=== PATIENT | female | born 1955 | race Caucasian/White ===

== ENCOUNTER 2016-07-14 04:53 | Emergency (ER) | payer MEDICARE, MEDICAID ==
[~2016-07-14] VITALS: Ht 172.7 cm; Wt 90.7 kg
[~2016-07-14 04:53] MED LIST: CARI350T21 PO; GABA300C8 PO; LIDO5DIS40 TOP; MORP30TA PO; OMEP20TA85 PO; OXCARBAZEPINE 600 MG TABLET PO; OXYBUTYNIN 5 MG PO; RANI-226 PO; ROPI0.5T18 PO; WARF10TA PO; WARF2TAB55 PO; ZOLP12.564 PO
[2016-07-14 05:00] VITALS: BP 128/78
== END 2016-07-14 06:57 | disposition home or self-care (01) ==
LOC: ER 04:58
DX: H10.33 Unspecified acute conjunctivitis, bilateral (principal); J45.909 Unspecified asthma, uncomplicated; Z86.73 Personal history of transient ischemic attack (TIA), and cerebral infarction without residual deficits; Z85.9 Personal history of malignant neoplasm, unspecified; Z86.711 Personal history of pulmonary embolism; Z88.6 Allergy status to analgesic agent; Z88.8 Allergy status to other drugs, medicaments and biological substances; Z79.899 Other long term (current) drug therapy

== ENCOUNTER 2017-07-17 04:17 | Inpatient (IN) | payer MEDICARE, MEDICAID ==
[~2017-07-17] VITALS: Ht 175.3 cm; Wt 108.9 kg
[~2017-07-17 04:17] MED LIST changes: +CARI-316 PO; -CARI350T21 PO; +GABA300C10 PO; -GABA300C8 PO; -LIDO5DIS40 TOP; +LIDO5DIS7 TOP
[2017-07-17 07:01] LABS: Basophils # (auto) 0 uL; Basophils % (auto) 0.4 % (0.0-2.0); Eosinophils # (auto) 0 uL; Eosinophils % (auto) 0.4 % (0.0-7.0); Hematocrit 32.8 % (36.0-46.0); Hemoglobin 11.3 g/dL (12.2-16.2); Lymphocytes # (auto) 0.4 uL; Lymphocytes % (auto) 10.4 % (10.0-50.0); Mean Corpuscular Hemoglobin 34.5 pg (28.0-32.0); Mean Corpuscular Hgb Conc. 34.5 g/dL (32.0-36.0); Monocytes # (auto) 0.2 uL; Monocytes % (auto) 6.8 % (0.0-12.0); Neutrophils # (auto) 2.8 uL; Platelet Count (auto) 162 10^3/uL (140-450); Red Blood Cells 3.28 10^6/uL (4.0-5.20); Red Cell Distribution Width 13.1 % (11.8-14.3); White Blood Cell 3.4 10^3/uL (4.4-10.8)
[2017-07-17 07:15] LABS: INR 0.99 (0.9-1.15); Partial Thromboplastin Time 26.2 sec (22.64-33.71); Prothrombin Time 10.8 sec (9.37-12.3)
[2017-07-17 07:37] LABS: Alanine Aminotransferase 42 U/L (13-56); Albumin 3.6 g/dL (3.4-5.0); Amylase 39 U/L (25-115); Anion Gap 6 (5-15); Aspartate Aminotransferase 32 U/L (15-37); BUN/Creatinine Ratio 38.7; Blood Urea Nitrogen 29 mg/dL (7-18); Calcium 8.3 mg/dL (8.5-10.1); Carbon Dioxide 29 mmol/L (21-32); Chloride 98 mmol/L (98-107); GFR African American 100 mL/min; GFR Non-African American 83 mL/min; Glucose 115 mg/dL (74-106); Lipase 85 U/L (73-393); Magnesium 2.1 mg/dL (1.6-2.6); Sodium 133 mmol/L (136-145)
[2017-07-17 07:39] LABS: Urine Bacteria NONE SEEN /hpf (None Seen); Urine Blood Negative /uL (Negative); Urine Mucus FEW (None Seen); Urine Specific Gravity 1.029 (1.001-1.035); Urine WBC <1 /hpf (0 - 5)
[2017-07-17 07:42] LABS: Alkaline Phosphatase 78 U/L (45-117); Bilirubin, Total 0.3 mg/dL (0.2-1.0); Total Protein 7.4 g/dL (6.4-8.2)
[2017-07-17] MEDS ORDERED: DEXTROSE 10% 1,000 ML IV ONE (07:45)
[2017-07-17] MEDS ORDERED: MEPERIDINE HCL (50 MG/ML) 1 ML VIAL IV ONE (10:45)
[2017-07-17] MEDS ORDERED: ONDANSETRON HCL 4 MG/2 ML VIAL IV ONE (10:45)
[2017-07-17] MEDS: SODIUM CHLORIDE 0.9% 1,000 ML IV SCH (11:47)
[2017-07-17] MEDS ORDERED: NITROGLYCERIN 0.4 MG SL TAB SL PRN (12:00)
[2017-07-17] MEDS ORDERED: MECLIZINE HCL 25 MG TAB PO PRN (12:00)
[2017-07-17] MEDS ORDERED: TEMAZEPAM 15 MG CAP PO PRN (12:00)
[2017-07-17] MEDS ORDERED: DEXTROSE (50%) 50ML SYRG IV PRN (12:00)
[2017-07-17] MEDS ORDERED: ACETAMINOPHEN 500 MG TAB PO PRN (12:00)
[2017-07-17] MEDS ORDERED: MECLIZINE HCL 25 MG TAB PO ONE (12:00)
[2017-07-17] MEDS ORDERED: LORazepam 0.5 MG TAB PO PRN (12:00)
[2017-07-17] MEDS ORDERED: MORPHINE SULFATE 4 MG/ML SYR/VIAL IV PRN (12:00)
[2017-07-17] MEDS ORDERED: HYDROcodone-ACET 5/325MG TAB PO PRN (12:00)
[2017-07-17 12:32] LABS: Alcohol, Urine < 3.0 mg/dL (0-5); Amphetamine Screen, Urine NEGATIVE (NEGATIVE); Barbiturate Scree,Urine NEGATIVE (NEGATIVE); Benzodiazephine Screen, Urine NEGATIVE (NEGATIVE); Cannabinoid Screen, Urine NEGATIVE (NEGATIVE); Cocaine Screen, Urine NEGATIVE (NEGATIVE); Opiate Scree,Urine POSITIVE (NEGATIVE); Phencyclidine Screen, Urine NEGATIVE (NEGATIVE)
[2017-07-17] MEDS: ASPirin 81 mg TAB PO SCH (12:51)
[2017-07-17] MEDS: PANTOPRAZOLE 40 MG TAB PO SCH (12:51)
[2017-07-17] MEDS: InsuLIN REG 1unit/0.01ml Soln (100units/ml) SC SCH ×2 (12:55→18:00)
[2017-07-17] MEDS: ACCU-CHEK COMFORT CURVE STRIP VI SCH ×2 (12:56→18:00)
[2017-07-17] MEDS ORDERED: MORPHINE 30 MG PO SCH (14:00)
[2017-07-17] MEDS ORDERED: LORazepam 2MG/ML-1ML VIAL IV PRN (14:00)
[2017-07-17] MEDS: CARISOPRODOL 350 MG TAB PO SCH ×2 (14:02→22:38)
[2017-07-17] MEDS: OXYBUTYNIN CHL 5 MG TAB PO SCH ×2 (14:02→22:37)
[2017-07-17 14:36] LABS: Cholesterol 138 mg/dL (< 200); HDL Cholesterol 50 mg/dL (40-59); LDL Cholesterol 79 mg/dL (< 100); Triglycerides 77 mg/dL (< 150)
[2017-07-17] MEDS: MORPHINE SULFATE 4 MG/ML SYR/VIAL IV PRN ×2 (16:17→22:39)
[2017-07-17] MEDS: ONDANSETRON HCL 4 MG/2 ML VIAL IV PRN ×2 (16:18→22:39)
[2017-07-17 16:57] VITALS: BP 126/67
[2017-07-17] MEDS ORDERED: WARFARIN SODIUM 10 MG TAB PO ONE (17:00)
[2017-07-17] MEDS ORDERED: ZOLPIDEM PO SCH (22:00)
[2017-07-17] MEDS ORDERED: OXcarbazepine 300 MG TAB PO SCH (22:00)
[2017-07-17] MEDS ORDERED: ROPINIROLE PO SCH (22:00)
[2017-07-17] MEDS: GABAPENTIN 300 MG CAP PO SCH (22:00)
[2017-07-17] MEDS: OXcarbazepine 300 MG TAB PO SCH (22:36)
[2017-07-17] MEDS: ATORVASTATIN 20 MG TAB PO SCH (22:37)
[2017-07-18] MEDS: ACCU-CHEK COMFORT CURVE STRIP VI SCH ×4 (00:30→18:00)
[2017-07-18] MEDS: SODIUM CHLORIDE 0.9% 1,000 ML IV SCH ×2 (00:31→07:47)
[2017-07-18] MEDS: ONDANSETRON HCL 4 MG/2 ML VIAL IV PRN ×4 (04:50→21:32)
[2017-07-18] MEDS: MORPHINE SULFATE 4 MG/ML SYR/VIAL IV PRN ×4 (04:55→21:33)
[2017-07-18] MEDS: CARISOPRODOL 350 MG TAB PO SCH ×3 (05:01→22:15)
[2017-07-18] MEDS: OXYBUTYNIN CHL 5 MG TAB PO SCH ×3 (05:01→22:14)
[2017-07-18] MEDS: InsuLIN REG 1unit/0.01ml Soln (100units/ml) SC SCH ×4 (05:08→18:00)
[2017-07-18 06:03] VITALS: BP 119/59
[2017-07-18 06:39] LABS: Basophils # (auto) 0 uL; Eosinophils # (auto) 0 uL; Mean Corpuscular Hgb Conc. 34.6 g/dL (32.0-36.0); Monocytes # (auto) 0.2 uL; Neutrophils # (auto) 1.2 uL; Red Cell Distribution Width 13.2 % (11.8-14.3); White Blood Cell 2.1 10^3/uL (4.4-10.8)
[2017-07-18 06:41] LABS: Basophils % (auto) 0.3 % (0.0-2.0); Hematocrit 29.1 % (36.0-46.0); Hemoglobin 10.1 g/dL (12.2-16.2); Lymphocytes # (auto) 0.7 uL; Mean Corpuscular Hemoglobin 34.6 pg (28.0-32.0); Monocytes % (auto) 11.8 % (0.0-12.0); Neutrophils % (auto) 54.9 % (37.0-80.0); Nucleated Red Blood Cells % 0.1 %; Red Blood Cells 2.91 10^6/uL (4.0-5.20)
[2017-07-18 06:45] LABS: Platelet Count (auto) 125 10^3/uL (140-450)
[2017-07-18 06:50] LABS: INR 0.99 (0.9-1.15); Partial Thromboplastin Time 26.6 sec (22.64-33.71); Prothrombin Time 10.8 sec (9.37-12.3)
[2017-07-18 07:07] LABS: Potassium 3.9 mmol/L (3.5-5.1)
[2017-07-18 07:14] LABS: BUN/Creatinine Ratio 26.3; Bilirubin, Total 0.3 mg/dL (0.2-1.0); Calcium 7.9 mg/dL (8.5-10.1); Total Protein 6.1 g/dL (6.4-8.2)
[2017-07-18 08:31] VITALS: BP 107/63
[2017-07-18 09:52] LABS: Folate (Folic Acid) 8.38 ng/mL (5.38-24)
[2017-07-18] MEDS: GABAPENTIN 300 MG CAP PO SCH ×2 (10:00→22:00)
[2017-07-18] MEDS: ASPirin 81 mg TAB PO SCH (11:05)
[2017-07-18] MEDS: DEXTROSE 10% 1,000 ML IV SCH ×2 (11:05→23:57)
[2017-07-18] MEDS: PANTOPRAZOLE 40 MG TAB PO SCH ×2 (11:05→22:15)
[2017-07-18 12:44] VITALS: BP 108/60
[2017-07-18 16:57] VITALS: BP 122/73
[2017-07-18] MEDS ORDERED: WARFARIN SODIUM 10 MG TAB PO ONE (17:00)
[2017-07-18] MEDS: ATORVASTATIN 20 MG TAB PO SCH (22:15)
[2017-07-18] MEDS: OXcarbazepine 300 MG TAB PO SCH (22:16)
[2017-07-19] MEDS: ACCU-CHEK COMFORT CURVE STRIP VI SCH ×4 (00:02→17:16)
[2017-07-19 00:38] VITALS: BP 113/59
[2017-07-19] MEDS: MORPHINE SULFATE 4 MG/ML SYR/VIAL IV PRN ×5 (04:17→21:04)
[2017-07-19] MEDS: ONDANSETRON HCL 4 MG/2 ML VIAL IV PRN ×4 (04:17→21:04)
[2017-07-19 05:42] VITALS: BP 129/56
[2017-07-19] MEDS: InsuLIN REG 1unit/0.01ml Soln (100units/ml) SC SCH ×4 (05:57→17:15)
[2017-07-19] MEDS: CARISOPRODOL 350 MG TAB PO SCH ×3 (05:58→22:16)
[2017-07-19] MEDS: OXYBUTYNIN CHL 5 MG TAB PO SCH ×3 (05:58→22:15)
[2017-07-19 06:53] LABS: INR 1.29 (0.9-1.15); Partial Thromboplastin Time 28.7 sec (22.64-33.71); Prothrombin Time 14.1 sec (9.37-12.3)
[2017-07-19 09:00] VITALS: BP 132/56
[2017-07-19] MEDS: GABAPENTIN 300 MG CAP PO SCH ×2 (10:00→22:15)
[2017-07-19] MEDS: ASPirin 81 mg TAB PO SCH (10:00)
[2017-07-19] MEDS: PANTOPRAZOLE 40 MG TAB PO SCH ×2 (10:00→22:16)
[2017-07-19] MEDS ORDERED: LACTULOSE 20Gm/30ML SOLN PO PRN (11:00)
[2017-07-19] MEDS ORDERED: LIDOCAINE 5% TOPICAL PATCH TOP SCH (11:00)
[2017-07-19] MEDS: DEXTROSE 10% 1,000 ML IV SCH (12:21)
[2017-07-19] MEDS: LIDODERM 5% PATCH TOP SCH (12:36)
[2017-07-19 13:00] VITALS: BP 116/59
[2017-07-19 16:23] VITALS: BP 121/60
[2017-07-19] MEDS ORDERED: WARFARIN SODIUM 2.5 MG TAB PO ONE (17:00)
[2017-07-19] MEDS ORDERED: OXYB15TA12 PO (19:13)
[2017-07-19] MEDS ORDERED: LIDO5DIS21 TOP (19:13)
[2017-07-19] MEDS ORDERED: LINA1CAP2 PO (19:13)
[2017-07-19] MEDS ORDERED: ACET300T4 PO (19:13)
[2017-07-19] MEDS ORDERED: ROPI1TAB2 PO (19:13)
[2017-07-19] MEDS ORDERED: OXCA600T3 PO (19:13)
[2017-07-19] MEDS ORDERED: ZOLP10TA PO (19:13)
[2017-07-19 22:00] VITALS: BP 124/64
[2017-07-19] MEDS: ATORVASTATIN 20 MG TAB PO SCH (22:15)
[2017-07-19] MEDS: OXcarbazepine 300 MG TAB PO SCH (22:16)
[2017-07-20] MEDS: ACCU-CHEK COMFORT CURVE STRIP VI SCH ×4 (00:29→17:44)
[2017-07-20] MEDS: MORPHINE SULFATE 4 MG/ML SYR/VIAL IV PRN ×4 (01:12→22:32)
[2017-07-20] MEDS: ONDANSETRON HCL 4 MG/2 ML VIAL IV PRN ×4 (01:13→22:31)
[2017-07-20] MEDS: DEXTROSE 10% 1,000 ML IV SCH (01:54)
[2017-07-20] MEDS: InsuLIN REG 1unit/0.01ml Soln (100units/ml) SC SCH ×4 (05:39→17:45)
[2017-07-20 06:00] VITALS: BP 136/65
[2017-07-20 06:33] LABS: INR 1.61 (0.9-1.15); Partial Thromboplastin Time 31.4 sec (22.64-33.71); Prothrombin Time 17.6 sec (9.37-12.3)
[2017-07-20] MEDS: OXYBUTYNIN CHL 5 MG TAB PO SCH ×3 (06:56→22:16)
[2017-07-20] MEDS: CARISOPRODOL 350 MG TAB PO SCH ×3 (06:57→22:15)
[2017-07-20] MEDS ORDERED: BACL10TA PO (08:30)
[2017-07-20] MEDS ORDERED: DICL50TA2 PO (08:31)
[2017-07-20] MEDS ORDERED: FAMO-12 PO (08:32)
[2017-07-20 08:41] VITALS: BP 127/59
[2017-07-20] MEDS ORDERED: POM PO (08:45)
[2017-07-20] MEDS: GABAPENTIN 300 MG CAP PO SCH ×2 (10:00→22:00)
[2017-07-20] MEDS: PANTOPRAZOLE 40 MG TAB PO SCH ×2 (10:17→22:14)
[2017-07-20] MEDS: LIDODERM 5% PATCH TOP SCH (10:17)
[2017-07-20] MEDS: ASPirin 81 mg TAB PO SCH (10:17)
[2017-07-20] MEDS ORDERED: BACLOFEN 10 MG TAB PO PRN (12:15)
[2017-07-20] MEDS ORDERED: ZOLPIDEM TARTRATE 5 MG TAB PO PRN ×2 (12:30→14:30)
[2017-07-20 12:50] VITALS: BP 146/88
[2017-07-20] MEDS: ROPINIROLE 1MG TABLET PO SCH (14:26)
[2017-07-20] MEDS ORDERED: WARFARIN SODIUM 5 MG TAB PO ONE (17:00)
[2017-07-20 22:00] VITALS: BP 123/65
[2017-07-20] MEDS ORDERED: OXcarbazepine 600 MG TAB PO SCH (22:00)
[2017-07-20] MEDS: ATORVASTATIN 20 MG TAB PO SCH (22:16)
[2017-07-20] MEDS ORDERED: OXcarbazepine 300 MG TAB PO SCH (22:30)
[2017-07-21] MEDS: ACCU-CHEK COMFORT CURVE STRIP VI SCH ×4 (00:20→18:03)
[2017-07-21] MEDS: MORPHINE SULFATE 4 MG/ML SYR/VIAL IV PRN ×4 (04:09→18:59)
[2017-07-21] MEDS: ONDANSETRON HCL 4 MG/2 ML VIAL IV PRN ×4 (04:09→18:59)
[2017-07-21 05:00] VITALS: BP 121/70
[2017-07-21 05:37] LABS: Basophils # (auto) 0 uL; Eosinophils # (auto) 0 uL; Monocytes # (auto) 0.2 uL; Red Cell Distribution Width 13.2 % (11.8-14.3)
[2017-07-21 05:39] LABS: Basophils % (auto) 0.1 % (0.0-2.0); Eosinophils % (auto) 1.8 % (0.0-7.0); Hematocrit 20.1 % (36.0-46.0); Lymphocytes # (auto) 0.2 uL; Lymphocytes % (auto) 14.3 % (10.0-50.0); Mean Corpuscular Hemoglobin 34.7 pg (28.0-32.0); Mean Corpuscular Hgb Conc. 34.9 g/dL (32.0-36.0); Mean Corpuscular Volume 99.4 fL (80.0-100.0); Monocytes % (auto) 9.8 % (0.0-12.0); Neutrophils # (auto) 1.3 uL; Nucleated Red Blood Cells % 0.1 %; Platelet Count (auto) 97 10^3/uL (140-450); Red Blood Cells 2.02 10^6/uL (4.0-5.20)
[2017-07-21 05:43] LABS: White Blood Cell 1.7 10^3/uL (4.4-10.8)
[2017-07-21 05:50] LABS: INR 1.54 (0.9-1.15); Partial Thromboplastin Time 31.8 sec (22.64-33.71); Prothrombin Time 16.9 sec (9.37-12.3)
[2017-07-21] MEDS: InsuLIN REG 1unit/0.01ml Soln (100units/ml) SC SCH ×4 (06:00→18:00)
[2017-07-21] MEDS: OXYBUTYNIN CHL 5 MG TAB PO SCH ×2 (06:03→13:51)
[2017-07-21] MEDS: CARISOPRODOL 350 MG TAB PO SCH ×2 (06:04→13:51)
[2017-07-21 06:05] LABS: Albumin 2.7 g/dL (3.4-5.0); BUN/Creatinine Ratio 17.2; Bilirubin, Total 0.3 mg/dL (0.2-1.0); Calcium 6.8 mg/dL (8.5-10.1); Potassium 3.3 mmol/L (3.5-5.1); Total Protein 5.7 g/dL (6.4-8.2)
[2017-07-21 08:00] VITALS: BP 104/74
[2017-07-21] MEDS: ASPirin 81 mg TAB PO SCH (09:25)
[2017-07-21 09:26] LABS: Basophils # (auto) 0 uL; Basophils % (auto) 0.3 % (0.0-2.0); Eosinophils # (auto) 0 uL; Eosinophils % (auto) 1.9 % (0.0-7.0); Hematocrit 32.8 % (36.0-46.0); Hemoglobin 11.2 g/dL (12.2-16.2); Lymphocytes # (auto) 0.5 uL; Lymphocytes % (auto) 18.8 % (10.0-50.0); Mean Corpuscular Hemoglobin 33.5 pg (28.0-32.0); Mean Corpuscular Hgb Conc. 34.1 g/dL (32.0-36.0); Mean Corpuscular Volume 98.3 fL (80.0-100.0); Monocytes # (auto) 0.3 uL; Monocytes % (auto) 11.5 % (0.0-12.0); Neutrophils # (auto) 1.7 uL; Neutrophils % (auto) 67.5 % (37.0-80.0); Platelet Count (auto) 157 10^3/uL (140-450); Red Blood Cells 3.34 10^6/uL (4.0-5.20); Red Cell Distribution Width 13.3 % (11.8-14.3); White Blood Cell 2.5 10^3/uL (4.4-10.8)
[2017-07-21] MEDS: PANTOPRAZOLE 40 MG TAB PO SCH (09:33)
[2017-07-21] MEDS: GABAPENTIN 300 MG CAP PO SCH (09:33)
[2017-07-21] MEDS: ROPINIROLE 1MG TABLET PO SCH (09:33)
[2017-07-21] MEDS ORDERED: ENOXAPARIN SOD 40 MG/0.4 ML SYRINGE SC SCH (10:00)
[2017-07-21] MEDS ORDERED: POTASSIUM CHL 20 Meq TABLET PO ONE (11:00)
[2017-07-21] MEDS: LIDODERM 5% PATCH TOP SCH (11:20)
[2017-07-21 12:00] VITALS: BP 111/59
[2017-07-21 17:00] VITALS: BP 136/79
== END 2017-07-21 20:50 | disposition home or self-care (01) | DRG 642 ==
LOC: EDBD 04:17 → ER 04:19 → TELE 04:20 → TELE-CENTR 16:36
PROVIDERS: ADMIT Internal Medicine; ATTEND Internal Medicine
DX: E80.29 Other porphyria (principal); D61.818 Other pancytopenia; D69.6 Thrombocytopenia, unspecified; E11.42 Type 2 diabetes mellitus with diabetic polyneuropathy; E11.40 Type 2 diabetes mellitus with diabetic neuropathy, unspecified; G20 Parkinson's disease; E87.1 Hypo-osmolality and hyponatremia; E86.0 Dehydration; G89.29 Other chronic pain; I25.10 Atherosclerotic heart disease of native coronary artery without angina pectoris; I34.1 Nonrheumatic mitral (valve) prolapse; M48.061 Spinal stenosis, lumbar region without neurogenic claudication; R32 Unspecified urinary incontinence; F41.9 Anxiety disorder, unspecified; G47.00 Insomnia, unspecified; M54.5 Low back pain; G40.909 Epilepsy, unspecified, not intractable, without status epilepticus; Z79.82 Long term (current) use of aspirin; Z79.899 Other long term (current) drug therapy; Z80.1 Family history of malignant neoplasm of trachea, bronchus and lung; Z80.3 Family history of malignant neoplasm of breast; Z80.41 Family history of malignant neoplasm of ovary; Z80.8 Family history of malignant neoplasm of other organs or systems; Z81.8 Family history of other mental and behavioral disorders; Z82.0 Family history of epilepsy and other diseases of the nervous system; Z82.3 Family history of stroke; Z82.49 Family history of ischemic heart disease and other diseases of the circulatory system; Z82.5 Family history of asthma and other chronic lower respiratory diseases; Z82.62 Family history of osteoporosis; Z83.3 Family history of diabetes mellitus; Z85.830 Personal history of malignant neoplasm of bone; Z86.711 Personal history of pulmonary embolism; Z86.718 Personal history of other venous thrombosis and embolism; Z86.73 Personal history of transient ischemic attack (TIA), and cerebral infarction without residual deficits; Z90.49 Acquired absence of other specified parts of digestive tract; Z90.89 Acquired absence of other organs; Z88.8 Allergy status to other drugs, medicaments and biological substances; Z79.01 Long term (current) use of anticoagulants
CPT/HCPCS: 36415; 71046; 74176; 80053; 80061; 80307; 81001; 82150; 82550; 82607; 82746; 82962; 83036; 83690; 83735; 84443; 84484; 85025; 85610; 85652; 85730; 93005; 95819; 96361; 96374; 96375; 97163; J1642; J2405

== ENCOUNTER 2018-01-08 03:26 | Inpatient (IN) | payer MEDICARE, MEDICAID ==
[~2018-01-08] VITALS: Ht 180.3 cm; Wt 107.4 kg
[~2018-01-08 03:26] MED LIST changes: +ACET300T4 PO; +BACL10TA PO; -CARI-316 PO; +DICL50TA2 PO; +FAMO-12 PO; -GABA300C10 PO; +LIDO5DIS21 TOP; -LIDO5DIS7 TOP; +LINA1CAP2 PO; -MORP30TA PO; -OMEP20TA85 PO; +OXCA600T3 PO; -OXCARBAZEPINE 600 MG TABLET PO; +OXYB15TA12 PO; -OXYBUTYNIN 5 MG PO; +POM PO; -RANI-226 PO; -ROPI0.5T18 PO; +ROPI1TAB2 PO; -WARF10TA PO; -WARF2TAB55 PO; +ZOLP10TA PO; -ZOLP12.564 PO
[2018-01-08 05:56] LABS: Urine Amorphous Crystal FEW /hpf (None Seen); Urine Bacteria FEW /hpf (None Seen); Urine Blood Negative /uL (Negative); Urine Mucus FEW (None Seen); Urine Specific Gravity 1.031 (1.001-1.035); Urine WBC 3 /hpf (0 - 5)
[2018-01-08 06:18] LABS: Basophils # (auto) 0 uL; Basophils % (auto) 0.3 % (0.0-2.0); Eosinophils # (auto) 0 uL; Eosinophils % (auto) 0.4 % (0.0-7.0); Hematocrit 34.2 % (36.0-46.0); Hemoglobin 11.7 g/dL (12.2-16.2); Lymphocytes # (auto) 0.3 uL; Lymphocytes % (auto) 8.1 % (10.0-50.0); Mean Corpuscular Hemoglobin 33.5 pg (28.0-32.0); Mean Corpuscular Hgb Conc. 34.1 g/dL (32.0-36.0); Monocytes # (auto) 0.3 uL; Monocytes % (auto) 9.2 % (0.0-12.0); Platelet Count (auto) 139 10^3/uL (140-450); Red Blood Cells 3.49 10^6/uL (4.0-5.20); Red Cell Distribution Width 14.5 % (11.8-14.3); White Blood Cell 3.6 10^3/uL (4.4-10.8)
[2018-01-08 06:31] LABS: INR 0.98 (0.9-1.15); Partial Thromboplastin Time 27.5 sec (23.78-33.04); Prothrombin Time 10.5 sec (9.27-12.13)
[2018-01-08 06:39] LABS: Alanine Aminotransferase 163 U/L (13-56); Albumin 3.6 g/dL (3.4-5.0); Alkaline Phosphatase 143 U/L (45-117); Amylase 37 U/L (25-115); Anion Gap 9 (5-15); Aspartate Aminotransferase 306 U/L (15-37); BUN/Creatinine Ratio 32.5; Bilirubin, Total 0.8 mg/dL (0.2-1.0); Blood Urea Nitrogen 26 mg/dL (7-18); Calcium 8.4 mg/dL (8.5-10.1); Carbon Dioxide 27 mmol/L (21-32); Chloride 101 mmol/L (98-107); GFR African American 94 mL/min; GFR Non-African American 78 mL/min; Glucose 111 mg/dL (74-106); Lipase 111 U/L (73-393); Magnesium 2.5 mg/dL (1.6-2.6); Potassium 3.9 mmol/L (3.5-5.1); Sodium 137 mmol/L (136-145); Total Protein 7.7 g/dL (6.4-8.2)
[2018-01-08] MEDS ORDERED: ONDANSETRON HCL 4 MG/2 ML VIAL IV ONE (07:45)
[2018-01-08] MEDS ORDERED: D5W/SOD CHLO 0.9% 1,000 ML IV ONE (07:45)
[2018-01-08] MEDS ORDERED: MEPERIDINE HCL (50 MG/ML) 1 ML VIAL IV ONE (07:45)
[2018-01-08] MEDS ORDERED: ACETAMINOPHEN 325 MG TAB PO PRN (12:45)
[2018-01-08] MEDS ORDERED: BACLOFEN 10 MG TAB PO PRN (12:45)
[2018-01-08] MEDS ORDERED: MORPHINE SULF INJ 2 MG/ML SYRINGE 1ML IV PRN (12:45)
[2018-01-08] MEDS ORDERED: NITROGLYCERIN 0.4 MG SL TAB SL PRN (12:45)
[2018-01-08] MEDS ORDERED: DEXTROSE (50%) 50ML SYRG IV PRN (12:45)
[2018-01-08] MEDS ORDERED: ACETAMINOPHEN/CODEINE#3 (300/30mg) TAB PO PRN (12:45)
[2018-01-08] MEDS ORDERED: PANTOPRAZOLE 40 MG TAB PO ONE (13:00)
[2018-01-08] MEDS ORDERED: MULTIPLE VITAMIN TAB PO ONE (13:00)
[2018-01-08] MEDS ORDERED: cefTRIAXone 1GM/10ml IVPUSH 10 ML IV ONE (13:00)
[2018-01-08] MEDS ORDERED: LORazepam 2MG/ML-1ML VIAL IV PRN (13:00)
[2018-01-08] MEDS ORDERED: FAMOTIDINE 20 MG TAB PO ONE (13:00)
[2018-01-08] MEDS: SODIUM CHLOR 0.9% PF (SALINE LOCK) 10ML VIAL/SYR IV SCH ×2 (13:33→21:19)
[2018-01-08] MEDS: OXYBUTYNIN CHL 5 MG TAB PO SCH ×2 (13:34→21:19)
[2018-01-08] MEDS: MORPHINE SULF INJ 2 MG/ML SYRINGE 1ML IV PRN ×2 (14:30→21:20)
[2018-01-08] MEDS: ONDANSETRON HCL 4 MG/2 ML VIAL IV PRN ×2 (14:30→21:20)
[2018-01-08] MEDS ORDERED: TRAM50TA2 PO (15:50)
[2018-01-08 16:06] VITALS: BP 133/66
[2018-01-08] MEDS: InsuLIN REG 1unit/0.01ml Soln (100units/ml) SC SCH ×2 (17:00→21:19)
[2018-01-08] MEDS: ACCU-CHEK COMFORT CURVE STRIP VI SCH ×2 (17:34→21:20)
[2018-01-08] MEDS: Glucerna Carbsteady SHAKE Vanilla 8oz PO SCH ×2 (17:35→21:19)
[2018-01-08] MEDS: FAMOTIDINE 20 MG TAB PO SCH (21:19)
[2018-01-08] MEDS: OXcarbazepine 300 MG TAB PO SCH (21:19)
[2018-01-08] MEDS: ZOLPIDEM TARTRATE 5 MG TAB PO PRN (21:38)
[2018-01-08 22:00] VITALS: BP 124/63
[2018-01-09] MEDS: ONDANSETRON HCL 4 MG/2 ML VIAL IV PRN ×2 (03:31→08:51)
[2018-01-09] MEDS: MORPHINE SULF INJ 2 MG/ML SYRINGE 1ML IV PRN ×4 (03:31→20:44)
[2018-01-09 05:00] VITALS: BP 126/68
[2018-01-09] MEDS: InsuLIN REG 1unit/0.01ml Soln (100units/ml) SC SCH ×4 (07:00→21:57)
[2018-01-09] MEDS: Glucerna Carbsteady SHAKE Vanilla 8oz PO SCH ×4 (07:06→21:56)
[2018-01-09] MEDS: ACCU-CHEK COMFORT CURVE STRIP VI SCH ×4 (07:06→21:57)
[2018-01-09] MEDS: OXYBUTYNIN CHL 5 MG TAB PO SCH ×3 (07:06→21:56)
[2018-01-09] MEDS: SODIUM CHLOR 0.9% PF (SALINE LOCK) 10ML VIAL/SYR IV SCH ×3 (07:06→21:56)
[2018-01-09 07:41] LABS: Albumin 2.7 g/dL (3.4-5.0); BUN/Creatinine Ratio 24.1; Bilirubin, Total 0.5 mg/dL (0.2-1.0); Potassium 3.3 mmol/L (3.5-5.1); Total Protein 5.8 g/dL (6.4-8.2)
[2018-01-09 08:00] VITALS: BP 120/57
[2018-01-09] MEDS: cefTRIAXone 1GM/10ml IVPUSH 10 ML IV SCH (08:51)
[2018-01-09 09:01] LABS: Hematocrit 36.6 % (36.0-46.0); Hemoglobin 12.3 g/dL (12.2-16.2); Mean Corpuscular Hemoglobin 33.3 pg (28.0-32.0); Mean Corpuscular Hgb Conc. 33.6 g/dL (32.0-36.0); Mean Corpuscular Volume 99.3 fL (80.0-100.0); Platelet Count (auto) 140 10^3/uL (140-450); Red Blood Cells 3.68 10^6/uL (4.0-5.20); Red Cell Distribution Width 14.4 % (11.8-14.3); White Blood Cell 3.3 10^3/uL (4.4-10.8)
[2018-01-09 09:20] LABS: Band Neutrophils % (manual) 0; Basophils % (manual) 0 (0.0-2.0); Blast Cells 0; Eosinophils % (manual) 0 (0-7); Metamyelocytes % 0; Myelocytes % 0; Promyelocytes % 0; Reactive Lymphocytes 0
[2018-01-09 09:38] LABS: Lymphocytes % (manual) 26 (10.0-50.0); Monocytes % (manual) 11 (0-12)
[2018-01-09] MEDS: DEXTROSE 10% 1,000 ML IV SCH ×2 (09:59→20:20)
[2018-01-09] MEDS: PANTOPRAZOLE 40 MG TAB PO SCH (09:59)
[2018-01-09] MEDS: MULTIPLE VITAMIN TAB PO SCH (09:59)
[2018-01-09] MEDS: PATIENTS OWN MEDICATION PO SCH (10:00)
[2018-01-09] MEDS: LIDOCAINE 5% TOPICAL PATCH TOP SCH ×2 (10:03→10:15)
[2018-01-09] MEDS: FAMOTIDINE 20 MG TAB PO SCH ×2 (10:10→21:56)
[2018-01-09 12:00] VITALS: BP 126/68
[2018-01-09] MEDS: ONDANSETRON ODT 4 MG TAB PO PRN ×2 (14:53→20:21)
[2018-01-09] MEDS: DOCUSATE SOD 100 MG CAP PO PRN (14:53)
[2018-01-09 17:00] VITALS: BP 131/59
[2018-01-09] MEDS: OXcarbazepine 300 MG TAB PO SCH (21:56)
[2018-01-09] MEDS: ZOLPIDEM TARTRATE 5 MG TAB PO PRN (21:57)
[2018-01-09 22:00] VITALS: BP 125/58
[2018-01-10] MEDS: ONDANSETRON ODT 4 MG TAB PO PRN ×5 (01:05→21:28)
[2018-01-10] MEDS: MORPHINE SULF INJ 2 MG/ML SYRINGE 1ML IV PRN ×5 (01:23→21:28)
[2018-01-10 05:00] VITALS: BP 132/74
[2018-01-10] MEDS: DEXTROSE 10% 1,000 ML IV SCH ×3 (06:07→21:28)
[2018-01-10] MEDS: OXYBUTYNIN CHL 5 MG TAB PO SCH ×3 (06:08→21:27)
[2018-01-10] MEDS: Glucerna Carbsteady SHAKE Vanilla 8oz PO SCH ×4 (06:08→21:27)
[2018-01-10] MEDS: ACCU-CHEK COMFORT CURVE STRIP VI SCH ×4 (06:08→21:27)
[2018-01-10] MEDS: SODIUM CHLOR 0.9% PF (SALINE LOCK) 10ML VIAL/SYR IV SCH ×3 (06:08→21:26)
[2018-01-10] MEDS: InsuLIN REG 1unit/0.01ml Soln (100units/ml) SC SCH ×4 (06:08→21:27)
[2018-01-10 09:26] VITALS: BP 130/67
[2018-01-10] MEDS: PANTOPRAZOLE 40 MG TAB PO SCH (10:00)
[2018-01-10] MEDS: cefTRIAXone 1GM/10ml IVPUSH 10 ML IV SCH (10:14)
[2018-01-10] MEDS: MULTIPLE VITAMIN TAB PO SCH (10:15)
[2018-01-10] MEDS: FAMOTIDINE 20 MG TAB PO SCH ×2 (10:15→21:27)
[2018-01-10 12:39] VITALS: BP 126/67
[2018-01-10] MEDS: PATIENTS OWN MEDICATION PO SCH (12:40)
[2018-01-10] MEDS: LIDOCAINE 5% TOPICAL PATCH TOP SCH (12:48)
[2018-01-10] MEDS ORDERED: GADOPENTETATE DIMEGLUMINE (10MMOL/20 ML) VIAL IV ONE (13:29)
[2018-01-10] MEDS ORDERED: LORazepam 2MG/ML-1ML VIAL IV ONE (14:45)
[2018-01-10 17:00] VITALS: BP 133/62
[2018-01-10] MEDS: OXcarbazepine 300 MG TAB PO SCH (21:27)
[2018-01-10] MEDS: ZOLPIDEM TARTRATE 5 MG TAB PO PRN (21:28)
[2018-01-11] MEDS: MORPHINE SULF INJ 2 MG/ML SYRINGE 1ML IV PRN ×2 (01:32→05:51)
[2018-01-11] MEDS: ONDANSETRON ODT 4 MG TAB PO PRN ×4 (01:32→23:53)
[2018-01-11 05:05] VITALS: BP 129/72
[2018-01-11] MEDS: OXYBUTYNIN CHL 5 MG TAB PO SCH ×3 (05:47→22:11)
[2018-01-11] MEDS: SODIUM CHLOR 0.9% PF (SALINE LOCK) 10ML VIAL/SYR IV SCH ×3 (05:47→22:09)
[2018-01-11] MEDS: ACCU-CHEK COMFORT CURVE STRIP VI SCH ×4 (05:47→22:28)
[2018-01-11] MEDS: Glucerna Carbsteady SHAKE Vanilla 8oz PO SCH ×4 (05:56→22:00)
[2018-01-11] MEDS: InsuLIN REG 1unit/0.01ml Soln (100units/ml) SC SCH ×4 (05:56→22:00)
[2018-01-11] MEDS ORDERED: MEPERIDINE HCL (25 MG/ML) 1ML VIAL IM PRN (08:30)
[2018-01-11 08:43] VITALS: BP 136/71
[2018-01-11] MEDS: D5W 5% 1,000 ML IV SCH ×3 (10:13→22:24)
[2018-01-11] MEDS: cefTRIAXone 1GM/10ml IVPUSH 10 ML IV SCH (10:14)
[2018-01-11] MEDS: MULTIPLE VITAMIN TAB PO SCH (10:16)
[2018-01-11] MEDS: LIDOCAINE 5% TOPICAL PATCH TOP SCH (10:16)
[2018-01-11] MEDS: PANTOPRAZOLE 40 MG TAB PO SCH (10:16)
[2018-01-11] MEDS: FAMOTIDINE 20 MG TAB PO SCH ×2 (10:16→22:10)
[2018-01-11] MEDS: traMADol HCL 50 MG TAB PO PRN (10:27)
[2018-01-11] MEDS: MEPERIDINE HCL (25 MG/ML) 1ML VIAL IV PRN ×3 (12:41→23:53)
[2018-01-11 12:57] VITALS: BP 142/67
[2018-01-11] MEDS: DOCUSATE SOD 100 MG CAP PO PRN (15:37)
[2018-01-11 17:00] VITALS: BP 139/73
[2018-01-11] MEDS: BISACODYL 10 MG RECT SUPP PR PRN (20:30)
[2018-01-11 22:00] VITALS: BP 156/83
[2018-01-11] MEDS: ZOLPIDEM TARTRATE 5 MG TAB PO PRN (22:10)
[2018-01-11] MEDS: OXcarbazepine 300 MG TAB PO SCH (22:17)
[2018-01-11] MEDS: PATIENTS OWN MEDICATION PO SCH (22:20)
[2018-01-12] MEDS: traMADol HCL 50 MG TAB PO PRN ×2 (01:21→18:57)
[2018-01-12] MEDS ORDERED: KETOROLAC TROMETH 30 MG/ML 1ML VIAL IV ONE (02:45)
[2018-01-12] MEDS: ONDANSETRON ODT 4 MG TAB PO PRN ×4 (04:46→20:33)
[2018-01-12 04:57] VITALS: BP 145/74
[2018-01-12] MEDS: Glucerna Carbsteady SHAKE Vanilla 8oz PO SCH ×4 (06:00→21:55)
[2018-01-12] MEDS: OXYBUTYNIN CHL 5 MG TAB PO SCH ×3 (06:05→21:46)
[2018-01-12] MEDS: MEPERIDINE HCL (25 MG/ML) 1ML VIAL IV PRN ×4 (06:10→20:32)
[2018-01-12] MEDS: SODIUM CHLOR 0.9% PF (SALINE LOCK) 10ML VIAL/SYR IV SCH ×3 (06:11→21:55)
[2018-01-12] MEDS: ACCU-CHEK COMFORT CURVE STRIP VI SCH ×4 (06:52→21:49)
[2018-01-12] MEDS: InsuLIN REG 1unit/0.01ml Soln (100units/ml) SC SCH ×4 (06:52→21:49)
[2018-01-12 08:18] VITALS: BP 132/83
[2018-01-12] MEDS: cefTRIAXone 1GM/10ml IVPUSH 10 ML IV SCH (09:29)
[2018-01-12] MEDS: D5W 5% 1,000 ML IV SCH ×2 (10:07→21:47)
[2018-01-12] MEDS ORDERED: GOLYTELY 4L KIT PO ONE (10:30)
[2018-01-12] MEDS: MULTIPLE VITAMIN TAB PO SCH (10:45)
[2018-01-12] MEDS: PANTOPRAZOLE 40 MG TAB PO SCH (10:46)
[2018-01-12] MEDS: FAMOTIDINE 20 MG TAB PO SCH ×2 (10:46→21:46)
[2018-01-12] MEDS: LIDOCAINE 5% TOPICAL PATCH TOP SCH (11:18)
[2018-01-12] MEDS: DOCUSATE SOD 100 MG CAP PO PRN (11:19)
[2018-01-12 12:35] VITALS: BP 134/74
[2018-01-12] MEDS ORDERED: DOCUSATE SOD 100 MG CAP PO PRN (16:30)
[2018-01-12 18:04] VITALS: BP 151/86
[2018-01-12] MEDS: BISACODYL 10 MG RECT SUPP PR PRN (20:33)
[2018-01-12] MEDS: PATIENTS OWN MEDICATION PO SCH (21:46)
[2018-01-12] MEDS: OXcarbazepine 300 MG TAB PO SCH (21:46)
[2018-01-12] MEDS: ZOLPIDEM TARTRATE 5 MG TAB PO PRN (21:53)
[2018-01-12 22:00] VITALS: BP 143/76
[2018-01-13] MEDS: ONDANSETRON ODT 4 MG TAB PO PRN ×2 (01:25→06:23)
[2018-01-13] MEDS: MEPERIDINE HCL (25 MG/ML) 1ML VIAL IV PRN ×2 (01:25→06:14)
[2018-01-13] MEDS: traMADol HCL 50 MG TAB PO PRN (04:58)
[2018-01-13 05:00] VITALS: BP 147/70
[2018-01-13] MEDS: Glucerna Carbsteady SHAKE Vanilla 8oz PO SCH ×4 (06:00→22:00)
[2018-01-13] MEDS: ACCU-CHEK COMFORT CURVE STRIP VI SCH ×4 (06:14→22:00)
[2018-01-13] MEDS: OXYBUTYNIN CHL 5 MG TAB PO SCH ×4 (06:14→22:00)
[2018-01-13] MEDS: InsuLIN REG 1unit/0.01ml Soln (100units/ml) SC SCH ×4 (06:14→22:00)
[2018-01-13] MEDS: SODIUM CHLOR 0.9% PF (SALINE LOCK) 10ML VIAL/SYR IV SCH ×3 (06:14→22:00)
[2018-01-13] MEDS ORDERED: MEPERIDINE HCL (25 MG/ML) 1ML VIAL IV PRN (08:30)
[2018-01-13 08:38] VITALS: BP 141/60
[2018-01-13 08:51] LABS: Basophils # (auto) 0 uL; Basophils % (auto) 0.4 % (0.0-2.0); Eosinophils # (auto) 0 uL; Eosinophils % (auto) 1.6 % (0.0-7.0); Hemoglobin 11.6 g/dL (12.2-16.2); Lymphocytes # (auto) 0.4 uL; Lymphocytes % (auto) 15.9 % (10.0-50.0); Mean Corpuscular Hemoglobin 33.6 pg (28.0-32.0); Mean Corpuscular Hgb Conc. 35.3 g/dL (32.0-36.0); Mean Corpuscular Volume 95.2 fL (80.0-100.0); Monocytes # (auto) 0.3 uL; Monocytes % (auto) 12.2 % (0.0-12.0); Neutrophils # (auto) 1.8 uL; Neutrophils % (auto) 69.9 % (37.0-80.0); Nucleated Red Blood Cells % 0.1 %; Platelet Count (auto) 147 10^3/uL (140-450); Red Blood Cells 3.46 10^6/uL (4.0-5.20); Red Cell Distribution Width 13.6 % (11.8-14.3); White Blood Cell 2.6 10^3/uL (4.4-10.8)
[2018-01-13 08:58] LABS: INR 1.01 (0.9-1.15); Partial Thromboplastin Time 29.9 sec (23.78-33.04); Prothrombin Time 10.8 sec (9.27-12.13)
[2018-01-13 09:16] LABS: Potassium 3.2 mmol/L (3.5-5.1)
[2018-01-13] MEDS: cefTRIAXone 1GM/10ml IVPUSH 10 ML IV SCH (09:45)
[2018-01-13] MEDS: MULTIPLE VITAMIN TAB PO SCH ×2 (10:00→11:10)
[2018-01-13] MEDS: D5W 5% 1,000 ML IV SCH ×2 (10:10→20:30)
[2018-01-13] MEDS: FAMOTIDINE 20 MG TAB PO SCH ×2 (11:10→22:00)
[2018-01-13] MEDS: PANTOPRAZOLE 40 MG TAB PO SCH (11:10)
[2018-01-13] MEDS: LIDOCAINE 5% TOPICAL PATCH TOP SCH (11:10)
[2018-01-13] MEDS ORDERED: PROPOFOL 10 MG/ML 20 ML IV ONE (12:19)
[2018-01-13] MEDS ORDERED: LIDOCAINE 1% (LOCAL ANESTH.) PF 5ml SDV ONE (12:19)
[2018-01-13] MEDS ORDERED: MIDAZOLAM HCL 1MG/1ML-2 ML VIAL ONE (12:19)
[2018-01-13] MEDS ORDERED: diphenhdrAMINE HCL 50 MG/1 ML VL ONE (12:43)
[2018-01-13] MEDS ORDERED: NALOXONE HCL 0.4 MG/ML VIAL IV PRN (13:15)
[2018-01-13] MEDS ORDERED: ONDANSETRON HCL 4 MG/2 ML VIAL IV ONE (13:15)
[2018-01-13] MEDS ORDERED: MORPHINE SULFATE 4 MG/ML SYR/VIAL IV PRN (13:15)
[2018-01-13] MEDS: ACCU-CHEK COMFORT CURVE STRIP VI ONE ×2 (13:15→13:30)
[2018-01-13 13:50] VITALS: BP 156/80
[2018-01-13 16:37] VITALS: BP 136/69
[2018-01-13 20:00] VITALS: BP 127/58
[2018-01-13 21:39] VITALS: BP 127/58
[2018-01-13] MEDS: OXcarbazepine 300 MG TAB PO SCH (22:00)
[2018-01-13] MEDS: PATIENTS OWN MEDICATION PO SCH (22:00)
== END 2018-01-13 21:57 | disposition home or self-care (01) | DRG 642 ==
LOC: ER 03:26 → EDBD 03:26 → EDUNIT# 03:26 → TELE 03:27 → TELE-WESTW 15:07
PROVIDERS: ADMIT Internal Medicine; ATTEND Internal Medicine Pulmonary Disease
PROC: 0DJD8ZZ Inspection of Lower Intestinal Tract, Via Natural or Artificial Opening Endoscopic (ICD-10-PCS; principal; 2018-01-13 12:31)
DX: E80.21 Acute intermittent (hepatic) porphyria (principal); N39.0 Urinary tract infection, site not specified; K21.9 Gastro-esophageal reflux disease without esophagitis; G40.909 Epilepsy, unspecified, not intractable, without status epilepticus; D63.8 Anemia in other chronic diseases classified elsewhere; E11.22 Type 2 diabetes mellitus with diabetic chronic kidney disease; E66.9 Obesity, unspecified; E83.51 Hypocalcemia; J45.909 Unspecified asthma, uncomplicated; E11.40 Type 2 diabetes mellitus with diabetic neuropathy, unspecified; I34.1 Nonrheumatic mitral (valve) prolapse; G20 Parkinson's disease; D69.6 Thrombocytopenia, unspecified; E11.21 Type 2 diabetes mellitus with diabetic nephropathy; N18.2 Chronic kidney disease, stage 2 (mild); G89.4 Chronic pain syndrome; I25.10 Atherosclerotic heart disease of native coronary artery without angina pectoris; Z85.830 Personal history of malignant neoplasm of bone; Z86.711 Personal history of pulmonary embolism; Z86.718 Personal history of other venous thrombosis and embolism; Z86.73 Personal history of transient ischemic attack (TIA), and cerebral infarction without residual deficits; Z87.81 Personal history of (healed) traumatic fracture; Z90.49 Acquired absence of other specified parts of digestive tract; Z88.8 Allergy status to other drugs, medicaments and biological substances; Z79.899 Other long term (current) drug therapy; Z68.33 Body mass index [BMI] 33.0-33.9, adult
CPT/HCPCS: 36415; 45378; 71045; 74176; 74181; 74183; 80051; 80053; 81001; 82150; 82962; 83036; 83690; 83735; 84443; 84484; 85007; 85025; 85027; 85610; 85730; 86850; 86900; 86901; 87086; 93005; 96361; 96374; 97116; 97163; A6257; J0696; J1642; J1885; J2250; J2405; J2704; Q0162

== ENCOUNTER 2021-12-13 03:14 | Emergency (ER) | payer MEDICARE, MEDICAID ==
[~2021-12-13] VITALS: Ht 172.7 cm; Wt 200.0 kg
[~2021-12-13 03:14] MED LIST changes: -ACET300T4 PO; -DICL50TA2 PO; -POM PO; -ROPI1TAB2 PO; +ROPI1TAB4 PO; +TRAM50TA2 PO
[2021-12-13 05:22] LABS: Basophils # (auto) 0 10 ^3/uL (0-0.2); Basophils % (auto) 0.1 % (0.0-2.0); Eosinophils # (auto) 0 10 ^3/uL (0-0.8); Eosinophils % (auto) 0.3 % (0.0-7.0); Hematocrit 32.7 % (36.0-46.0); Lymphocytes # (auto) 0.3 10 ^3/uL (0.4-5.4); Lymphocytes % (auto) 6.7 % (10.0-50.0); Mean Corpuscular Hgb Conc. 33.8 g/dL (32.0-36.0); Mean Corpuscular Volume 97.5 fL (80.0-100.0); Monocytes # (auto) 0.3 10 ^3/uL (0-1.3); Monocytes % (auto) 7.8 % (0.0-12.0); Neutrophils # (auto) 3.4 10 ^3/uL (1.6-8.6); Neutrophils % (auto) 85.1 % (37.0-80.0); Nucleated Red Blood Cells % 0.1 %; Red Blood Cells 3.35 10^6/uL (4.0-5.20); Red Cell Distribution Width 14.7 % (11.8-14.3)
[2021-12-13 05:38] LABS: Albumin 3.8 g/dL (3.4-5.0); Calcium 8.4 mg/dL (8.5-10.1); Magnesium 2.1 mg/dL (1.6-2.6); Potassium 3.7 mmol/L (3.5-5.1)
[2021-12-13 05:40] LABS: BUN/Creatinine Ratio 28.4
[2021-12-13 05:43] LABS: Bilirubin, Total 0.4 mg/dL (0.2-1.0); Total Protein 7.4 g/dL (6.4-8.2)
[2021-12-13 12:34] LABS: Urine Bacteria FEW /hpf (None Seen); Urine Blood Negative /uL (Negative); Urine Specific Gravity 1.018 (1.001-1.035); Urine WBC 3 /hpf (0 - 5)
[2021-12-13] MEDS ORDERED: NAP500T PO (13:02)
[2021-12-13] MEDS ORDERED: PANT1INJ3 IV (13:04)
[2021-12-13] MEDS ORDERED: KETOROLAC TROMETH 30 MG/ML 1ML VIAL IV ONE (13:15)
[2021-12-13 13:17] VITALS: BP 159/66
== END 2021-12-13 14:19 | disposition home or self-care (01) ==
LOC: EDUNIT# 03:14 → ER 03:14 → EDBD 03:14 → ER 14:09
DX: S70.01XA Contusion of right hip, initial encounter (principal); M17.11 Unilateral primary osteoarthritis, right knee; M17.12 Unilateral primary osteoarthritis, left knee; J45.909 Unspecified asthma, uncomplicated; E11.9 Type 2 diabetes mellitus without complications; K21.9 Gastro-esophageal reflux disease without esophagitis; Z90.49 Acquired absence of other specified parts of digestive tract; Z88.6 Allergy status to analgesic agent; Z88.8 Allergy status to other drugs, medicaments and biological substances; Z86.73 Personal history of transient ischemic attack (TIA), and cerebral infarction without residual deficits; W01.0XXA Fall on same level from slipping, tripping and stumbling without subsequent striking against object, initial encounter; Y93.89 Activity, other specified; Y92.89 Other specified places as the place of occurrence of the external cause; Y99.8 Other external cause status
CPT/HCPCS: 36415; 71045; 72170; 73552; 73590; 80053; 81001; 83735; 83880; 84484; 85025; 93005; 96374; 99285; J1885